=== PATIENT | male | born 1960 | race Two or more races ===

== ENCOUNTER 2021-01-19 11:02 | Inpatient (IN) | payer OTHER ==
[2021-01-19 15:32] VITALS: BMI 22.2
[2021-01-19] MEDS ORDERED: MAGNESIUM CITRATE 300 ML BOTTLE PO PRN (17:24)
[2021-01-19] MEDS ORDERED: METHOCARBAMOL 500 MG TABLET PO PRN (17:24)
[2021-01-19] MEDS ORDERED: BISMUTH SUBSALICYLATE 524 MG/30 ML PO PRN (17:24)
[2021-01-19] MEDS ORDERED: MAG HYDROX/AL HYDROX/SIMETH 30 ML UNIT-DOSE CUP PO PRN (17:24)
[2021-01-19] MEDS ORDERED: MAGNESIUM HYDROX 2400MG/30ML ORAL SUSPENSION 30 ML CUP PO PRN (17:24)
[2021-01-19] MEDS ORDERED: NICOTINE POLACRILEX 2 MG GUM BUC PRN (17:24)
[2021-01-19] MEDS ORDERED: ONDANSETRON *ODT* 4 MG TABLET SL PRN (17:24)
[2021-01-19] MEDS ORDERED: MENTHOL/PHENOL 1 EACH UD MM PRN (17:24)
[2021-01-19] MEDS ORDERED: ACETAMINOPHEN 325 MG TABLET (FP) PO PRN ×2 (17:24)
[2021-01-19] MEDS ORDERED: IBUPROFEN 400 MG TABLET (FP) PO PRN (17:24)
[2021-01-19] MEDS: diazePAM 5 MG TABLET PO PRN (19:14)
[2021-01-19] MEDS: diazePAM 5 MG TABLET PO SCH ×2 (19:15→23:46)
[2021-01-19] MEDS: MELATONIN 5 MG TABLETS PO SCH (23:46)
[2021-01-19] MEDS: THIAMINE HCL 100 MG TABLET (FP) PO SCH (23:47)
[2021-01-20] MEDS: diazePAM 5 MG TABLET PO SCH ×4 (07:16→22:50)
[2021-01-20] MEDS: ASPIRIN 81 MG CHEWABLE TABLETS PO SCH (10:55)
[2021-01-20] MEDS: PRENATAL VITAMINS W/ FOLIC ACID TABLET (FP) PO SCH (10:55)
[2021-01-20 12:16] LABS: HEMATOCRIT 38.4 % (35.4-49); HEMOGLOBIN 13.2 GM/dL (11.7-16.9); MCH 34.4 pg (25.7-33.7); MCHC 34.4 g/dl (32.0-35.9); MEAN PLT VOLUME 8.8 fl (7.5-11.1); PLATELET COUNT 155 10^3/uL (134-434); RBC 3.84 M/mm3 (4.00-5.60); RDW 12.8 % (11.9-15.9); WHITE BLOOD COUNT 5.9 K/mm3 (4.0-10.0)
[2021-01-20 12:17] LABS: BLOOD UREA NITROGEN 7.1 mg/dL (7-18); CALCIUM 8.5 mg/dL (8.5-10.1)
[2021-01-20 12:18] LABS: ALBUMIN 3.4 g/dl (3.4-5.0)
[2021-01-20 12:19] LABS: BILIRUBIN,TOTAL 1.2 mg/dL (0.2-1)
[2021-01-20 12:20] LABS: TOT PROT 6.2 g/dl (6.4-8.2)
[2021-01-20 12:22] LABS: CREATININE 0.7 mg/dL (0.55-1.3)
[2021-01-20 13:06] LABS: HIV INTERPRETATION NEGATIVE (NEGATIVE)
[2021-01-20] MEDS: hydrOXYzine PAMOATE 25 MG CAPSULE (FP) PO PRN (18:30)
[2021-01-20] MEDS: MELATONIN 5 MG TABLETS PO SCH (22:49)
[2021-01-20] MEDS: THIAMINE HCL 100 MG TABLET (FP) PO SCH (22:49)
[2021-01-21] MEDS: diazePAM 5 MG TABLET PO SCH ×3 (05:55→22:08)
[2021-01-21] MEDS: diazePAM 5 MG TABLET PO PRN (10:33)
[2021-01-21] MEDS: ASPIRIN 81 MG CHEWABLE TABLETS PO SCH (10:33)
[2021-01-21] MEDS: PRENATAL VITAMINS W/ FOLIC ACID TABLET (FP) PO SCH (10:33)
[2021-01-21] MEDS: THIAMINE HCL 100 MG TABLET (FP) PO SCH (22:07)
[2021-01-21] MEDS: MELATONIN 5 MG TABLETS PO SCH (22:07)
[2021-01-22] MEDS: diazePAM 5 MG TABLET PO SCH ×2 (08:10→18:00)
[2021-01-22] MEDS: diazePAM 5 MG TABLET PO PRN (10:54)
[2021-01-22] MEDS: ASPIRIN 81 MG CHEWABLE TABLETS PO SCH (10:55)
[2021-01-22] MEDS: PRENATAL VITAMINS W/ FOLIC ACID TABLET (FP) PO SCH (10:55)
[2021-01-22] MEDS: hydrOXYzine PAMOATE 25 MG CAPSULE (FP) PO PRN (10:55)
[2021-01-22] MEDS: MELATONIN 5 MG TABLETS PO SCH (22:45)
[2021-01-22] MEDS: THIAMINE HCL 100 MG TABLET (FP) PO SCH (22:45)
[2021-01-23] MEDS ORDERED: diazePAM 5 MG TABLET PO ONE (06:00)
[2021-01-23 10:02] VITALS: BP 122/55; PULSE 89; TEMP 97.1
[2021-01-23] MEDS: ASPIRIN 81 MG CHEWABLE TABLETS PO SCH (12:16)
[2021-01-23] MEDS: PRENATAL VITAMINS W/ FOLIC ACID TABLET (FP) PO SCH (12:16)
== END 2021-01-23 10:38 | disposition home or self-care (01) | DRG 775 ==
LOC: YASAS 11:02 → Y3N 17:38
PROVIDERS: ADMIT Allergy & Immunology; ATTEND Allergy & Immunology
PROC: HZ2ZZZZ Detoxification Services for Substance Abuse Treatment (ICD-10-PCS; principal; 2021-01-19)
DX: F10.230 Alcohol dependence with withdrawal, uncomplicated (principal); F10.220 Alcohol dependence with intoxication, uncomplicated; F17.210 Nicotine dependence, cigarettes, uncomplicated; I25.10 Atherosclerotic heart disease of native coronary artery without angina pectoris
CPT/HCPCS: 36415; 80053; 85027; 86780; 87389; C9803; U0003; U0005